=== PATIENT | female | born 1960 | race Hispanic/Latino ===

== ENCOUNTER 2016-10-07 21:48 | Inpatient (IN) | payer MEDICAID ==
[2016-10-07 21:49] VITALS: BMI 34.3
--- NOTE | 2016-10-07 22:11 | C.PDOC ---
History Of Present Illness Pt presents with left mid clavicular pain as well as some chest pressure, while watching tv. 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 Pain is reproducible. Speaking in complete sentences. No f/c/n/v. Time Seen by Provider: 10/07/16 22:10 Chief Complaint (Nursing): Chest Pain History Per: Patient History/Exam Limitations: no limitations Onset/Duration Of Symptoms: Hrs (2) Current Symptoms Are (Timing): Still Present Context: Other Severity: Moderate Pain Scale Rating Of: 4 Quality: Sharp, Tightness Associated Symptoms: denies: Nausea, Dyspnea, Diaphoresis Exacerbating Factors: Turning, Movement, Other (palpation) Alleviating Factors: None Recent travel outside of the [place]: No Additional History Per: Family Past Medical History Reviewed: Historical Data, Nursing Documentation, Vital Signs Vital Signs: Last Vital Signs Temp 97.9 F 10/07/16 22:04 Pulse 73 10/07/16 22:04 Resp 18 10/07/16 22:04 BP 155/76 H 10/07/16 22:04 Pulse Ox 98 10/07/16 22:52 - Medical History PMH: Anxiety (NO MEDS AT PRESENT), Arthritis, Asthma, HTN, Hypercholesterolemia , Osteoporosis Denies: Chronic Kidney Disease Surgical History: Coronary Stent (X 2) Denies: Pacemaker - [facility] Procedures CORONARY ARTERIOGRAM NEC (03/15/12) INSERTION OF TWO VASCULAR STENTS (03/15/12) INSRT OF DRUG-ELUTING CORON ARTERY STENTS(S) (03/15/12) PERCUTANEOUS TRANSLUMINAL CORONARY ANGIOPLASTY [PTCA] (03/15/12) PROCEDURE ON TWO VESSELS (03/15/12) Family History: States: No Known Family Hx - Social History Hx Alcohol Use: Yes Hx Substance Use: Yes (DENIES THIS VISIT) - Immunization History Hx Tetanus Toxoid Vaccination: No Hx Influenza Vaccination: Yes Hx Pneumococcal Vaccination: Yes Review Of Systems Constitutional: Negative for: Fever, Chills Eyes: Negative for: Redness ENT: Negative for: Throat Pain Cardiovascular: Positive for: Chest Pain Respiratory: Negative for: Shortness of Breath Gastrointestinal: Negative for: Nausea, Vomiting Genitourinary: Negative for: Dysuria Musculoskeletal: Positive for: Shoulder Pain Skin: Negative for: Rash, Lesions, Jaundice, Bruising Neurological: Negative for: Weakness Psych: Negative for: Anxiety Physical Exam - Physical Exam Appears: Non-toxic, No Acute Distress Skin: Warm, Dry Head: Normacephalic Eye(s): bilateral: Normal Inspection Oral Mucosa: Moist Neck: Supple Chest: Symmetrical, Tenderness (left clavicular area) Cardiovascular: Rhythm Regular Respiratory: No Rales, No Rhonchi, No Wheezing Gastrointestinal/Abdominal: Soft, No Tenderness, No Distention Back: No CVA Tenderness Extremity: No Tenderness Extremity: Bilateral: Atraumatic, Normal Color And Temperature, Normal ROM Neurological/Psych: Oriented x3, Normal Speech, Normal Cognition Gait: Steady ED Course And Treatment - Laboratory Results Result Diagrams: 10/07/16 22:34 10/07/16 22:34 ECG: Interpreted By Me, Viewed By Me ECG Rhythm: Sinus Rhythm (70), Nonspecific Changes O2 Sat by Pulse Oximetry: 98 Pulse Ox Interpretation: Normal - Radiology CXR: Interpreted by Me, Viewed By Me CXR Interpretation: Yes: Other (unchanged from 05/22/15). No: Infiltrates, Fracture, Pnemothorax Disposition Discussed With Dr.: Danielle Bradford Comment: accepted the ptt on his service and took over the care at 11:07 PM Doctor Will See Patient In The: Hospital Counseled Patient/Family Regarding: Studies Performed, Diagnosis - Disposition Referrals: Ying Spaulding MD [Primary Care Provider] - Disposition: HOSPITALIZED Disposition Time: 22:10 Condition: FAIR - POA Present On Arrival: None - Clinical Impression Clinical Impression: Chest pain, Congestive heart failure Decision To Admit - Pt Status Changed To: Hospital Disposition Of: Inpatient - Admit Certification Admit to Inpatient:: After my assessment, the patient will require hospitalization for at least two midnights. This is because of the severity of symptoms shown, intensity of services needed, and/or the medical risk in this patient being treated as an outpatient. - InPatient: Physician Admission Certification: I certify that this patient requires 2 or more midnights of care for the following reason:: After my assessment, the patient will require hospitalization for at least two midnights. This is because of the severity of symptoms shown, intensity of services needed, and/or the medical risk in this patient being treated as an outpatient. - . Bed Request Type: Telemetry Admitting Physician: Danielle Bradford Patient Diagnosis: Chest pain, Congestive heart failure
[2016-10-07 22:37] LABS: BASO % 0.2 % (0.0-2.0); EOS # 0.2 K/uL (0.0-0.7); EOS % 1.7 % (0.0-4.0); HEMATOCRIT 39.4 % (34.0-47.0); LYMPH # 3.7 K/uL (1.0-4.3); LYMPH % 34.5 % (20.0-40.0); MEAN CELL VOLUME 87.5 fL (81.0-99.0); MEAN CORPUSCULAR HEMOGLOBIN 28.9 pg (27.0-31.0); MEAN CORPUSCULAR HGB CONC 33.1 g/dL (33.0-37.0); MEAN PLATELET VOLUME 8.8 fL (7.2-11.7); MONO # 0.9 K/uL (0.0-0.8); MONO % 8.5 % (0.0-10.0); RED CELL DISTRIBUTION WIDTH 15.7 % (11.5-14.5); WHITE BLOOD COUNT 10.7 K/uL (4.8-10.8)
[2016-10-07 22:46] LABS: CHLORIDE 99 mmol/L (98-107); POTASSIUM 4.4 mmol/L (3.6-5.2); SODIUM 138 mmol/L (132-148)
[2016-10-07 22:48] LABS: ALB/GLOB RATIO 0.9 (1.0-2.1); ALKALINE PHOSPHATASE 99 U/L (38-126); AST/SGOT 36 U/L (14-36); BILIRUBIN,TOTAL 0.7 mg/dL (0.2-1.3); CARBON DIOXIDE 24 mmol/L (22-30); GFR AFRICAN-AMERICAN > 60; TOTAL PROTEIN 8.3 g/dL (6.3-8.3)
[2016-10-07 22:49] LABS: ALT/SGPT 31 U/L (9-52); BLOOD UREA NITROGEN 18 mg/dL (7-17); CALCIUM 9.1 mg/dl (8.6-10.4); GLUCOSE,RANDOM 91 mg/dL (65-105)
[2016-10-07 23:08] LABS: RBC URINE 4 /hpf (0-3); TRANSITIONAL EPITHIAL 1 /hpf (0-3); URINE BACTERIA FEW (<OCC); URINE BILIRUBIN NEGATIVE (NEGATIVE); URINE BLOOD 1+ (NEGATIVE); URINE COLOR Straw (YELLOW); URINE GLUCOSE (UA) NORMAL (Normal); URINE KETONE NEGATIVE (NEGATIVE); URINE LEUKOCYTE ESTERASE 3+ Leu/uL (Negative); URINE PROTEIN NEGATIVE (NEGATIVE); URINE UROBILINOGEN NORMAL mg/dL (0.2-1.0); WBC URINE 48 /hpf (0-5)
[2016-10-08] MEDS ORDERED: BUDESONIDE IH PRN (00:02)
[2016-10-08] MEDS ORDERED: Oxycodone/Acetaminophen 5/325 mg Tab PO PRN (00:02)
[2016-10-08] MEDS ORDERED: FORMOTEROL FUMARATE IH PRN (00:02)
[2016-10-08] MEDS ORDERED: Oxycodone/Acetaminophen 5/325 mg Tab ONE (00:30)
[2016-10-08 00:35] VITALS: RESP 20
--- NOTE | 2016-10-08 07:59 | RAD ---
PROCEDURE: CHEST RADIOGRAPH, 1 VIEW HISTORY: chest pain COMPARISON: 05/21/2016 FINDINGS: LUNGS: Mild venous congestion. PLEURA: No pneumothorax or pleural fluid seen. CARDIOVASCULAR: Normal. OSSEOUS STRUCTURES: No significant abnormalities. VISUALIZED UPPER ABDOMEN: Normal. OTHER FINDINGS: None. IMPRESSION: Mild venous congestion.
--- NOTE | 2016-10-08 09:11 | CP.PCM.PN ---
Subjective - Date & Time of Evaluation Date of Evaluation: 10/08/16 Time of Evaluation: 08:50 - Subjective Subjective: Medicine Progress Note- Dr. Bradford's Service: 56 year old female with PMHx of CAD with 2 stents, HTN admitted yesterday for chest pain. Chest pain radiates to left shoulder, left neck and down left arm. Chest pain lasted for 2 hours. She has not had chest pain before that for a long time. Last chest pain was when he got his stents placed. Patient seen and examined at bedside this morning at bedside. PMHx: CAD with 2 stents, HTN. SHx: Coronary Stent (X 2) Meds: Ramipril 10 mg PO daily Social Hx: Smokes cigarettes and marijuana socially. Admits to social alcohol use. No other drug use. No Known Family Hx Allergies: Penicillin Objective - Vital Signs/Intake and Output Vital Signs (last 24 hours): Temp Pulse Resp BP Pulse Ox 97.5 F L 58 L 20 128/81 98 10/08/16 05:40 10/08/16 05:40 10/08/16 05:40 10/08/16 05:40 10/08/16 05:40 - Medications Medications: Current Medications Acetaminophen (Tylenol 325mg Tab) 650 mg PO Q4 PRN PRN Reason: pain Alprazolam (Xanax) 0.5 mg PO DAILY PRN PRN Reason: Anxiety Last Admin: 10/08/16 02:22 Dose: 0.5 mg Aspirin (Aspirin Chewable) 81 mg PO DAILY [facility] Carvedilol (Coreg) 6.25 mg PO BID [facility] Clopidogrel Bisulfate (Plavix) 75 mg PO DAILY [facility] Enoxaparin Sodium (Lovenox) 40 mg SC DAILY [facility] Home Med (Budesonide/Formoterol Fumarate [Symbicort 80-4.5 Mcg Inhaler]) 2 puff IH BID PRN PRN Reason: Wheezing Home Med (Ramipril [Ramipril]) 5 mg PO DAILY [facility] Home Med (Simvastatin [Simvastatin]) 10 mg PO HS [facility] Oxycodone/Acetaminophen (Percocet 5/325 Mg Tab) 1 tab PO TID PRN PRN Reason: Pain, moderate (4-7) Stop: 10/11/16 00:03 Last Admin: 10/08/16 00:30 Dose: 1 tab Pantoprazole Sodium (Protonix Ec Tab) 40 mg PO DAILY [facility] - Labs Labs: PT 10.6 SECONDS (9.7-12.2) 10/07/16 22:34 INR 1.0 10/07/16 22:34 APTT 29 SECONDS (21-34) 10/07/16 22:34 - Constitutional Appears: No Acute Distress - Head Exam Head Exam: NORMAL INSPECTION, NORMOCEPHALIC - Eye Exam Eye Exam: EOMI, Normal appearance - Neck Exam Neck Exam: Full ROM - Respiratory Exam Respiratory Exam: Clear to Ausculation Bilateral, NORMAL BREATHING PATTERN - Cardiovascular Exam Cardiovascular Exam: REGULAR RHYTHM, +S1, +S2 - GI/Abdominal Exam GI & Abdominal Exam: Soft. absent: Distended, Tenderness - Extremities Exam Extremities Exam: Full ROM, Normal Inspection - Neurological Exam Neurological Exam: Alert, Awake, Oriented x3 - Psychiatric Exam Psychiatric exam: Normal Affect, Normal Mood - Skin Skin Exam: Dry, Normal Color, Warm Assessment and Plan (1) Chest pain Assessment & Plan: Patient with Hx of CAD and stents placed in 2009 and 2012. Patient was admitted to telemetry. EKG on admission NSR 70 bpm Cardio consult placed- Dr. Spaulding- help appreciated JENNY #1, #2: <0.0120, 0.0180 f/u JENNY #3 Continue home: * Coreg 6.25 mg PO BID * Plavix 75 mg PO daily * Aspirin 81 mg PO daily * Percocet PO TID PRN Status: Acute (2) HTN (hypertension) Assessment & Plan: Restart ACEi (Ramapril not on formulary) Will start Vasotec 10 mg PO daily Continue home Coreg 6.25 mg PO BID Status: Acute (3) Anxiety Assessment & Plan: Xanax 0.5 mg PO daily Status: Acute (4) Abnormal urinalysis Assessment & Plan: UA abnormal: LE 3+, WBC 48 Patient is asymptomatic. Will not treat for UTI. f/u UA Status: Acute (5) Prophylactic measure Assessment & Plan: Lovenox 40 mg SC daily Protonix 40 mg PO daily All management as per Dr. Bradford Status: Acute
[2016-10-08] MEDS ORDERED: RAMIPRIL 5 MG PO SCH (10:00)
[2016-10-08] MEDS ORDERED: Pantoprazole 40 mg EC Tab PO SCH (10:00)
[2016-10-08] MEDS: Enoxaparin 40 mg Syringe SC SCH (10:07)
--- NOTE | 2016-10-08 18:37 | CP.PCM.CON ---
History of Present Illness - History of Present Illness History of Present Illness: I was asked to evaluate patietn by Dr. Bradford. Patient is a 56 year old female with PMH HTN CAD s/p stent LAD who presents with chest pain. Patient was watching TV when she noted the onset of upper back pain. It started in her shoulder blade. The pain then went to her neck and her chest. There was no associated dyspnea. Cardiac enzymes are negative. Review of Systems - Constitutional Constitutional: absent: As Per HPI, Anorexia, Chills, Daytime Sleepiness, Excessive Sweating, Fatigue, Fever, Frequent Falls, Headache, Increased Appetite , Lethargy, Malaise, Night Sweats, Snoring, Sleep Apnea, Weight Gain, Weight Loss, Weakness, Other - EENT Eyes: absent: As Per HPI, Blind Spots, Blurred Vision, Change in Vision, Decreased Night Vision, Diplopia, Discharge, Dry Eye, Exophthalmos, Floaters, Irritation, Itchy Eyes, Loss of Peripheral Vision, Pain, Photophobia, Requires Corrective Lenses, Sees Flashes, Spots in Vision, Tunnel Vision, Other Visual Disturbances, Loss of Vision, Other Ears: absent: As Per HPI, Decreased Hearing, Ear Discharge, Ear Pain, Tinnitus, Abnormal Hearing, Disequilibrium, Dizziness, Other Nose/Mouth/Throat: absent: As Per HPI, Epistaxis, Nasal Congestion, Nasal Discharge, Nasal Obstruction, Nasal Trauma, Nose Pain, Post Nasal Drip, Sinus Pain, Sinus Pressure, Bleeding Gums, Change in Voice, Dental Pain, Dry Mouth, Dysphagia, Halitosis, Hoarsness, Lip Swelling, Mouth Lesions, Mouth Pain, Odynophagia, Sore Throat, Throat Swelling, Tongue Swelling, Facial Pain, Neck Pain, Neck Mass, Other - Cardiovascular Cardiovascular: absent: As Per HPI, Acrocyanosis, Chest Pain, Chest Pain at Rest , Chest Pain with Activity, Claudication, Diaphoresis, Dyspnea, Dyspnea on Exertion, Edema, Irregular Heart Rhythm, Pain Radiating to Arm/Neck/Jaw, Leg Edema, Leg Ulcers, Lightheadedness, Orthopnea, Palpitations, Paroxysmal Nocturnal Dyspnea, Pedal Edema, Radiating Pain, Rapid Heart Rate, Slow Heart Rate, Syncope, Other - Respiratory Respiratory: absent: As Per HPI, Cough, Dyspnea, Hemoptysis, Dyspnea on Exertion , Wheezing, Snoring, Stridor, Pain on Inspiration, Chest Congestion, Excessive Mucous Production, Change in Mucous Color, Pain with Coughing, Other - Gastrointestinal Gastrointestinal: absent: As Per HPI, Abdominal Pain, Belching, Bloating, Change in Bowel Habits, Change in Stool Character, Coffee Ground Emesis, Constipation, Cramping, Diarrhea, Dyspepsia, Dysphagia, Early Satiety, Excessive Flatus, Fecal Incontinence, Heartburn, Hematemesis, Hematochezia, Loose Stools, Melena, Nausea, Odynophagia, Temesmus, Vomiting, Other - Musculoskeletal Musculoskeletal: absent: As Per HPI, Abnormal Gait, Arthralgias, Atrophy, Back Pain, Deformity, Joint Swelling, Limited Range of Motion, Loss of Height, Muscle Cramps, Muscle Weakness, Myalgias, Neck Pain, Numbness, Radiating Pain into Limb, Stiffness, Tingling, Other - Integumentary Integumentary: absent: As Per HPI, Acne, Alopecia, Bleeding Lesions, Change in Hair, Change in Nails, Change in Pigmentation, Changing Lesions, Dry Skin, Erythema, Furuncle, Hirsutism, Lesions, New Lesions, Non-Healing Lesions, Photosensitivity, Pruritus, Rash, Skin Pain, Skin Ulcer, Sores, Striae, Swelling , Unusual Bruising, Wounds, Jaundice, Other - Neurological Neurological: absent: As Per HPI, Abnormal Gait, Abnormal Hearing, Abnormal Movements, Abnormal Speech, Behavioral Changes, Burning Sensations, Confusion, Convulsions, Disequilibrium, Dizziness, Numbness, Focal Weakness, Frequent Falls , Headaches, Lack of Coordination, Loss of Vision, Memory Loss, Paresthesias, Radicular Pain, Restless Legs, Sensory Deficit, Syncope, Tingling, Tremor, Vertigo, Weakness, Other Visual Disturbances, Other - Psychiatric Psychiatric: absent: As Per HPI, Abnormal Sleep Pattern, Anhedonia, Anxiety, Auditory Hallucinations, Behavioral Changes, Change in Appetite, Change in Libido, Confusion, Depression, Difficulty Concentrating, Hallucinations, Homicidal Ideation, Hopelessness, Irritability, Memory Loss, Mood Swings, Panic Attacks, Paranoia, Suicidal Ideation, Visual Hallucinations, Tactile Hallucinations, Other - Endocrine Endocrine: absent: As Per HPI, Change in Body Appearance, Change in Libido, Cold Intolorance, Deepening of Voice, Excessive Sweating, Fatigue, Flushing, Heat Intolorance, Increase in Ring/Shoe/Hat Size, Palpitations, Polydipsia, Polyphagia, Polyuria, Other - Hematologic/Lymphatic Hematologic: absent: As Per HPI, Easy Bleeding, Easy Bruising, Lymphadenopathy, Other Past Patient History - Infectious Disease Hx of Infectious Diseases: None - Past Medical History & Family History Past Medical History?: Yes - Past Social History Smoking Status: Former Smoker - CARDIAC Hx Hypercholesterolemia: Yes Hx Hypertension: Yes Hx Pacemaker: No - PULMONARY Hx Asthma: Yes - HEENT Hx HEENT Problems: No - RENAL Hx Chronic Kidney Disease: No - ENDOCRINE/METABOLIC Hx Endocrine Disorders: No - INTEGUMENTARY Hx Dermatological Problems: No - MUSCULOSKELETAL/RHEUMATOLOGICAL Hx Falls: No - GASTROINTESTINAL Hx Gastrointestinal Disorders: No - GENITOURINARY/GYNECOLOGICAL Hx Genitourinary Disorders: No - PSYCHIATRIC Hx Substance Use: Yes (WEED OCCASIONAL) - SURGICAL HISTORY Hx Coronary Stent: Yes (X 2) - ANESTHESIA Hx Anesthesia: Yes Hx Anesthesia Reactions: Yes (shaking per pt) Hx Malignant Hyperthermia: No Meds Allergies/Adverse Reactions: Allergies Allergy/AdvReac Type Severity Reaction Status Date / Time Penicillins Allergy Severe SWELLING Verified 10/07/16 21:59 - Medications Medications: Current Medications Acetaminophen (Tylenol 325mg Tab) 650 mg PO Q4 PRN PRN Reason: pain Alprazolam (Xanax) 0.5 mg PO DAILY PRN PRN Reason: Anxiety Last Admin: 10/08/16 02:22 Dose: 0.5 mg Aspirin (Aspirin Chewable) 81 mg PO DAILY [facility] Last Admin: 10/08/16 10:07 Dose: 81 mg Carvedilol (Coreg) 6.25 mg PO BID [facility] Last Admin: 10/08/16 17:20 Dose: 6.25 mg Clopidogrel Bisulfate (Plavix) 75 mg PO DAILY [facility] Last Admin: 10/08/16 10:07 Dose: 75 mg Enalapril Maleate (Vasotec) 10 mg PO DAILY [facility] Enoxaparin Sodium (Lovenox) 40 mg SC DAILY [facility] Last Admin: 10/08/16 10:07 Dose: 40 mg Oxycodone/Acetaminophen (Percocet 5/325 Mg Tab) 1 tab PO TID PRN PRN Reason: Pain, moderate (4-7) Stop: 10/11/16 00:03 Last Admin: 10/08/16 00:30 Dose: 1 tab Pantoprazole Sodium (Protonix Ec Tab) 40 mg PO DAILY [facility] Last Admin: 10/08/16 10:07 Dose: 40 mg Rosuvastatin Calcium (Crestor) 2.5 mg PO HS [facility] Fluticasone/Salmeterol (Advair Diskus 250/50) 1 puff INH RQ12 [facility] Results - Vital Signs Recent Vital Signs: Last Vital Signs Temp 98.2 F 10/08/16 15:30 Pulse 55 L 10/08/16 16:00 Resp 20 10/08/16 15:30 BP 148/88 10/08/16 17:20 Pulse Ox 94 L 10/08/16 15:30 - Labs Result Diagrams: 10/07/16 22:34 10/07/16 22:34 Labs: Laboratory Results - last 24 hr 10/08/16 06:40 Total Creatine Kinase 41 CK-MB (Mass) 1.13 Troponin I, Quant 0.0180 - EKG Data EKG Interpreted by: Myself EKG shows normal: Sinus rhythm Assessment & Plan (1) CAD (coronary artery disease) Assessment and Plan: patient has history of coronary stenting. Her symptoms are atypical for CAD. can likley discharge in am if no further symptoms Status: Acute (2) Chest pain Assessment and Plan: no cardiac Status: Acute (3) HTN (hypertension) Assessment and Plan: blood pressure control Status: Acute
[2016-10-08] MEDS ORDERED: Fluticasone-Salmeterol 250-50mcg Diskus INH SCH (20:00)
[2016-10-08] MEDS ORDERED: Rosuvastatin Calcium 2.5 mg Tab PO SCH (22:00)
[2016-10-08 22:39] LABS: RBC URINE < 1 /hpf (0-3); TRANSITIONAL EPITHIAL < 1 /hpf (0-3); URINE BACTERIA RARE (<OCC); URINE BILIRUBIN NEGATIVE (NEGATIVE); URINE BLOOD NEGATIVE (NEGATIVE); URINE COLOR Straw (YELLOW); URINE GLUCOSE (UA) NORMAL (Normal); URINE KETONE NEGATIVE (NEGATIVE); URINE LEUKOCYTE ESTERASE 1+ Leu/uL (Negative); URINE PROTEIN NEGATIVE (NEGATIVE); URINE UROBILINOGEN NORMAL mg/dL (0.2-1.0); WBC URINE 8 /hpf (0-5)
[2016-10-09] MEDS: Enoxaparin 40 mg Syringe SC SCH (09:51)
[2016-10-09 15:20] VITALS: BP 103/66; PULSE 63; TEMP 97.6; O2SAT 97
--- NOTE | 2016-10-09 16:32 | CP.PCM.PN ---
Subjective - Date & Time of Evaluation Date of Evaluation: 10/09/16 Time of Evaluation: 16:32 - Subjective Subjective: PT SEEN BY DR. PARKS. CLEARED FOR D/C HOME TODAY BY DR. TOMAS. OK TO D/C PER DR. PARKS. PT WILL F/U WITH CARDIO AND PMD THIS WEEK. HAS ENOUGH OF HER HOME MEDS AND NEEDS NO RX. NO FURTHER ORDERS. Objective - Vital Signs/Intake and Output Vital Signs (last 24 hours): Temp Pulse Resp BP Pulse Ox 97.6 F 63 20 103/66 97 10/09/16 15:17 10/09/16 15:17 10/09/16 15:17 10/09/16 15:17 10/09/16 15:17 - Medications Medications: Current Medications Acetaminophen (Tylenol 325mg Tab) 650 mg PO Q4 PRN PRN Reason: pain Alprazolam (Xanax) 0.5 mg PO DAILY PRN PRN Reason: Anxiety Last Admin: 10/08/16 21:14 Dose: 0.5 mg Aspirin (Aspirin Chewable) 81 mg PO DAILY [facility] Last Admin: 10/09/16 09:52 Dose: 81 mg Carvedilol (Coreg) 6.25 mg PO BID [facility] Last Admin: 10/09/16 09:52 Dose: 6.25 mg Clopidogrel Bisulfate (Plavix) 75 mg PO DAILY [facility] Last Admin: 10/09/16 09:51 Dose: 75 mg Enalapril Maleate (Vasotec) 10 mg PO DAILY [facility] Last Admin: 10/09/16 09:52 Dose: 10 mg Enoxaparin Sodium (Lovenox) 40 mg SC DAILY [facility] Last Admin: 10/09/16 09:51 Dose: 40 mg Oxycodone/Acetaminophen (Percocet 5/325 Mg Tab) 1 tab PO TID PRN PRN Reason: Pain, moderate (4-7) Stop: 10/11/16 00:03 Last Admin: 10/08/16 00:30 Dose: 1 tab Pantoprazole Sodium (Protonix Ec Tab) 40 mg PO DAILY [facility] Last Admin: 10/08/16 10:07 Dose: 40 mg Rosuvastatin Calcium (Crestor) 2.5 mg PO HS [facility] Last Admin: 10/08/16 21:14 Dose: 2.5 mg Fluticasone/Salmeterol (Advair Diskus 250/50) 1 puff INH RQ12 [facility] - Labs Labs: PT 10.6 SECONDS (9.7-12.2) 10/07/16 22:34 INR 1.0 10/07/16 22:34 APTT 29 SECONDS (21-34) 10/07/16 22:34
--- NOTE | 2016-10-09 16:35 | PCM.HF ---
Heart Failure Core Measure - Heart Failure Ejection Fraction: 40 % or Greater (PT HAD ECHO DONE--NO RESULTS YET--WILL BE FOLLOWED UP BY DR. 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 TOMAS Hydralazine Nitrate Prescribed: No Contraindication/Reason for not providing: PENDING ECHO RESULTS; TO BE FOLLOWED UP BY DR. TOMAS Implantable Cardioverter Defibrillator Therapy: No Contraindication/Reason for not providing: NO H/O; PENDING ECHO RESULTS Cardiac Resynchronization Therapy Prescribed: No Contraindication/Reason for not providing: NO H/O; PENDING ECHO RESULTS - Follow up Will be discharged to: Home Follow Up Date (must be within 7 days from discharge): 10/14/16 Follow Up Time: 09:00
--- NOTE | 2016-10-10 06:54 | HP ---
HISTORY OF PRESENT ILLNESS: A 56-year-old female complaining of chest pain, weakness, fatigue. The patient came to the hospital for admission. The patient advised admission to the hospital. PHYSICAL EXAMINATION: GENERAL: The patient is awake, alert, oriented. VITAL SIGNS: Temperature 98,pulse 90. HEENT: Normal limits. NECK: Supple. CHEST: Symmetrical. HEART: Regular. ABDOMEN: Soft. EXTREMITIES: No edema. IMPRESSION AND PLAN: The patient suffers from acute coronary syndrome. Patient is on bedrest, supportive care, cardiology evaluation. Danielle Bradford MD
--- NOTE | 2016-10-11 08:50 | CARD ---
APPROVED REPORT EXAM: Two-dimensional and M-mode echocardiogram with Doppler and color Doppler. Other Information Quality : GoodRhythm : NSR INDICATION Congestive Heart Failure RISK FACTORS Hypertension M-Mode DIMENSIONS RVDd0.76 (2.1-3.2cm)Left Atrium (MM)4.84 (2.5-4.0cm) IVSd0.69 (0.7-1.1cm)Aortic Root2.66 (2.2-3.7cm) LVDd6.18 (4.0-5.6cm)Aortic Cusp Exc.1.33 (1.5-2.0cm) PWd0.62 (0.7-1.1cm)FS (%) 26 % LVDs4.58 (2.0-3.8cm)LVEF (%)50 (>50%) Mitral Valve MV E Xzzzlcts093.1cm/sMV A Ejlvormm17.6cm/sE/A ratio3.0 TDI E/Lateral E'0.0E/Medial E'0.0 Tricuspid Valve TR Peak [id number]/sTR Peak [id number] <Conclusion> Suboptimal study Left ventricle: thickness: normal; size: normal;lrge apical wall motion abnormality; coronary disease versus stress cardiomyopathy; overall ejection fraction: 45%: diastolic filling pressures: elevated Mitral valve: annulus: normal: leaflets: normal: excursion: normal; no significant trans-mitral gradient: no significant incompetence: left atrium: dilated Aortic valve: leaflets: normal: excursion: normal; no significant trans-aortic gradient: No significant incompetence: aortic root: normal Right sided Structures: Pulmonary valve: normal; no significant incompetence; Tricuspid valve: normal; no significant incompetence: Intra-cardiac hemodynamics: pulmonary systolic pressures: 44 mmHg; central venous pressures: normal No pericardial effusion
--- NOTE | 2016-10-18 08:57 | CARD ---
APPROVED REPORT EKG Measurement Heart [id number] <Conclusion> Normal sinus rhythm Left axis deviation Anteroseptal infarct, age undetermined Abnormal ECG
== END 2016-10-09 17:00 | disposition home or self-care (01) | DRG 127 ==
LOC: SUPCPDRO 21:48 → C.ER 21:48 → C.9E 23:29 → C.6T 10-08 00:30
PROVIDERS: ADMIT Internal Medicine Pulmonary Disease; ATTEND Internal Medicine Pulmonary Disease
DX: I11.0 Hypertensive heart disease with heart failure (principal); I25.10 Atherosclerotic heart disease of native coronary artery without angina pectoris; I50.9 Heart failure, unspecified; F41.9 Anxiety disorder, unspecified; F12.90 Cannabis use, unspecified, uncomplicated; F17.210 Nicotine dependence, cigarettes, uncomplicated; Z95.5 Presence of coronary angioplasty implant and graft